=== PATIENT | female | born 1975 ===

== ENCOUNTER 2018-03-21 05:52 | Day surgery (SDC) | payer OTHER ==
[2018-03-16 10:22] VITALS: BMI 28.3
[2018-03-21] MEDS ORDERED: Bupivacaine HCl 0.25% PF (30 ml) Inj ONE (07:09)
[2018-03-21] MEDS ORDERED: Lidocaine 1% PF (5ml) Amp INJ ONE (07:10)
[2018-03-21] MEDS ORDERED: Lidocaine 2% MPF (5 ml) Inj INFIL ONE (07:17)
[2018-03-21] MEDS ORDERED: Midazolam 2 MG/2 ML VIAL ONE (07:41)
[2018-03-21] MEDS ORDERED: Propofol 10 mg/ml Inj (20 ML) ONE (07:42)
[2018-03-21] MEDS ORDERED: Lidocaine 2% MPF (5 ml) Inj ONE (07:44)
[2018-03-21] MEDS ORDERED: Lactated Ringer's 1,000 ML IV ONE ×3 (07:46→11:40)
[2018-03-21] MEDS ORDERED: ceFAZolin 1 gm FROZEN Premix 2 GM/100 ML ML IVPB ONE (07:59)
[2018-03-21] MEDS ORDERED: Phenylephrine 10 mg/ml Inj ONE (08:38)
[2018-03-21] MEDS ORDERED: Lidocaine 2% Jelly (Uro-Jet) ONE (10:11)
[2018-03-21] MEDS ORDERED: Oxycodone/Acetaminophen 5/325 mg Tab PO PRN ×2 (10:39)
--- NOTE | 2018-03-21 10:42 | PCM.SURG1 ---
Surgeon's Initial Post Op Note - Surgeon's Notes Surgeon: Dr. Bazan Network Firewall Engineer: Bang Aguialr PGY-3, Saba Vasquez PGY-2 Type of Anesthesia: General LMA, Local Pre-Operative Diagnosis: Right foot painful bunion and 2nd digit hammer toe deformity Operative Findings: See dictation Post-Operative Diagnosis: Same Operation Performed: Right foot bunionectomy and 2nd digit hammer toe correction Specimen/Specimens Removed: None Estimated Blood Loss: EBL {In ML}: 10 Blood Products Given: N/A Drains Used: No Drains Post-Op Condition: Good Date of Surgery/Procedure: 03/21/18 Time of Surgery/Procedure: 08:00
[2018-03-21] MEDS ORDERED: Albuterol 0.083% Inhal Sol (2.5 mg/3 mL) UD INH ONE (10:43)
[2018-03-21] MEDS ORDERED: Midazolam 2 MG/2 ML VIAL IVP PRN (10:43)
[2018-03-21] MEDS ORDERED: HYDROmorphone 0.5 mg/0.5 ml ISec IVP PRN (10:43)
--- NOTE | 2018-03-21 11:31 | RAD ---
PROCEDURE: Right Foot Radiographs. HISTORY: s/p right foot surgery COMPARISON: None. FINDINGS: BONES: Status post bunionectomy and osteotomy proximal and distal 1st metatarsal. Fixation with plate and screw traverses the proximal osteotomy site. Two screws traverse the distal 1st metatarsal osteotomy. A pin traverses the entire 2nd digit. Status post osteotomy distal aspect 2nd proximal phalanx. No acute fracture. JOINTS: Normal. SOFT TISSUES: Normal. OTHER FINDINGS: None. IMPRESSION: Status post bunionectomy and multiple osteotomies. Orthopedic fixation 1st metatarsal and 2nd digit.
[2018-03-21 13:00] VITALS: RESP 16
[2018-03-21 15:32] VITALS: BP 125/79; PULSE 89; TEMP 97.6; O2SAT 98
--- NOTE | 2018-03-21 18:58 | PCM.OP ---
Operative Report - Operative Report Date of Surgery/Procedure: 03/21/18 Time of Surgery/Procedure: 08:00 Surgeon: Dr. Bazan Fruit Packer: Bang Rodriguez PGY-3, Saba Vasquez PGY-2 Anesthesia/Sedation: General LMA and local Pre-Operative Diagnosis: #1. Right foot painful bunion #2. Right foot 2nd digit hammer toe deformity Post-Operative Diagnosis: #1. Right foot painful bunion #2. Right foot 2nd digit hammer toe deformity Indication for Surgery: The patient is a 42 year-old female with the above diagnoses. The patient has exhausted conservative treatment at this time and now requests surgical intervention. The patient signed the consent after careful explanation of risks, benefits, complication and alternatives for surgical procedure. No guarantees were given nor implied. 2 grams Ancef IV were given to the pt hour prior to the procedure. NPO status was confirmed prior to taking pt to the OR. Operative Findings: The patient was brought to the operating room and placed on the operating room table in supine position. A well-padded pneumatic thigh tourniquet was placed to the patient's right thigh. Once general anesthesia was achieved, the right lower extremity was then prepped and draped in usual sterile manner. Esmarch was utilized to exsanguinate the patient's right lower extremity. Pneumatic Thigh tourniquet was then inflated to 350 mmHg and procedure began. Procedure/Operation Description: #1. Right foot 1st metatarsal opening base wedge osteotomy and distal 1st metatarsal osteotomy with internal fixation: Attention was directed to the dorsal aspect of the 1st metatarsal right foot. At this time, Utilizing intraoperative fluoroscopy, 1st metatarsal-medial cuneiform joint was confirmed. Incision was made approximately 7 cm from the TMT joint to medi shaft of the 1st metatarsal. The incision was deepened through the subcutaneous tissues using sharp and blunt dissection. Care was taken to identify and retract all vital neurovascular structures. All bleeders were cauterized and ligated as necessary. Next, Utilizing Oscillating bone saw, transverse cut was made approximately 1.5 cm distal to the TMT joint and perpendicular to the weight bearing surface. This cut was left the lateral cortex and periosteum intact. Osteotomy was carefully opened and checked IM ankle on Fluoroscopy. Next, the Osteotomes were inserted in the osteotomy site and the osteotomy site was distracted, also Arthrex Osteotomy distractor was used. Next Arthrex non-locking Opening base wedge plate size 4 was inserted and temporary fixated with BB-Taks. The plate placement was confirmed on the intraoperative Fluoroscopy. Next, the plate was fixated with 3.0 x 22mm, 20mm, 16mm cortical screws and 3.0 x14mm locking screw. Compression of the screws was to be noted excellent. Next, Utilizing Arthrex DBM Putty was inserted at the osteotomy site. The surgical site was flushed with copious amount of normal sterile saline. Next, attention was redirected to the medial aspect of the 1st metatarsal head area. At this time the 1st metatarsal proximal articular set angle (PASA) was assessed and was determined and to be corrected. Next, L type of osteotomy was made at the 1st metatarsal head metaphyseal area with the first cut was made transversely and parallel to the 1st metatarsal shaft, direction was medial to the lateral. The second cut was made perpendicular to the first bone cut and oblique third bone cut was made 3 mm proximal to the second bone cut and direction was medial proximal to the lateral distal. And the dominant fragment was shifted to the medially and the PASA was corrected and in good position. Next the osteotomy site was fixed with two of 2.5 x18 mm partially threaded headless screws based on AO technique with good compression. The surgical site was flushed with copious amount of normal sterile saline. Deep capsule was reapproximated with #3-0 and #4-0 Vicryl. Skin was reapproximated with #4-0 Prolene.. #2. Right foot 2nd digit PIPJ arthroplasty and 2nd MPJ capsule release: Attention was then directed to the dorsal aspect of the second digit right foot where a linear longitudinal incision was made overlying the metatarsalphalangeal joint of the 2nd digit. The incision was deepened through subcutaneous tissue with care being taken to identify and retract all vital neurovascular structures. All bleeders were cauterized and ligated as necessary. At this time, a transverse tenotomy and capsulotomy was performed to the proximal interphalangeal joint of the second digit, left foot. The head of the proximal phalanx was then freed of its capsular and ligamentous attachments. Next utilizing an oscillating saw, the head of the proximal phalanx was resected and passed from the operative site. The wound was then flushed with copious amount of sterile normal saline. At this time, a transverse tenotomy and capsulotomy was performed to the 2nd metatarsalphalangeal joint left foot. Utilizing Mcglamry elevator, the head of the 2nd metatarsal was then freed of its capsular and ligamentous attachments. The wound was then flushed with copious amount of sterile normal saline. Next, a 0.045 inch K-wire was driven from the base of the proximal phalanx exiting the distal aspect of the third digit. The K-wire was then retrograded proximally into the remaining aspect of the metatarsal. Correction of the deformity was assessed at this time and noted to be excellent. Distal end of proximal extensor tendon stump and proximal end of distal extensor tendon stump were reapproximated and sutured with #3-0 vicryl. Skin was reapproximated and sutured with #4-0 Prolene. The surgical site was infiltrated with 20ml of mixture of 2% Lidocaine and 0.5% Marcaine plain. The right foot was dressed with xeroform, DSD and Posterior splint. Estimated Blood Loss: 10 Complications: None Discharge & Condition: The patient tolerated the anesthesia and procedure well and was escorted to the recovery room with vital signs stable and neurovascular status intact to the right foot. This patient will follow up with
== END 2018-03-21 14:03 | disposition home or self-care (01) ==
LOC: C.SDS 05:52
PROVIDERS: ATTEND Podiatrist Foot & Ankle Surgery
DX: M20.11 Hallux valgus (acquired), right foot (principal); M20.41 Other hammer toe(s) (acquired), right foot
CPT/HCPCS: 28285; 28299; 28308; 73620; 88304; 97116; 97161; G8978; G8979; G8980; J0690; J1100; J1170; J2001; J2250; J2370; J2704; J2765; J3010; J7120